=== PATIENT | male | born 1990 | race Caucasian/White ===

== ENCOUNTER 2017-11-09 15:09 | Emergency (ER) | payer BC ==
[2017-11-09 15:16] VITALS: BP 121/86
[2017-11-09] MEDS ORDERED: Lidocaine 1% with EPINEPHrine 1:100,000 20 ML MDV INJECT ONE (15:27)
[2017-11-09] MEDS ORDERED: Bupivacaine 0.5% 10 ML SDV INJECT ONE (15:27)
--- NOTE | 2017-11-09 15:33 | EDM.PDOC ---
ED HPI GENERAL MEDICAL PROBLEM - General Chief Complaint: Upper Extremity Injury/Pain Stated Complaint: R THUMB LAC Time Seen by Provider: 11/09/17 15:22 Source of Information: Reports: Patient, Family (), RN Notes Reviewed History Limitations: Reports: No Limitations - History of Present Illness INITIAL COMMENTS - FREE TEXT/NARRATIVE: The patient states that he was cutting a bolt with a grinder set up operator around 11:30 this morning, when the grinder set up operator slipped, cutting the patient's right thumb. The patient is otherwise uninjured. The patient states that his last tetanus vaccination was 3-4 years ago. The patient does not have a PCP. Right 1-Thumb Pain Score (Numeric/FACES): 1 - Related Data Allergies Allergy/AdvReac Type Severity Reaction Status Date / Time No Known Allergies Allergy Verified 08/21/15 20:47 Home Meds: Home Meds . [No Known Home Meds] 11/09/17 [History] Past Medical History - Past Health History Medical/Surgical History: Denies Medical/Surgical History - Infectious Disease History Infectious Disease History: Reports: Chicken Pox Social & Family History - Family History Family Medical History: Noncontributory - Tobacco Use Smoking Status *Q: Former Smoker Years of Tobacco use: 3 Packs/Tins Daily: 1.5 Month/Year Tobacco Last Used: Quit 2012 - Caffeine Use Caffeine Use: Reports: Coffee, Soda, Tea - Alcohol Use Alcohol Use History: Yes Alcohol Use Frequency: Socially - Recreational Drug Use Recreational Drug Use: No - Living Situation & Occupation Living situation: Reports: , with Spouse, with Family (2 kids) Occupation: Employed ([employer]) Review of Systems - Review of Systems Review Of Systems: ROS reveals no pertinent complaints other than HPI. ED EXAM, GENERAL - Physical Exam Exam: See Below Exam Limited By: No Limitations General Appearance: Alert, WD/WN, No Apparent Distress Extremities: Other (Approximately 2.5 centimeter jagged laceration across the dorso-radial aspect of the proximal phalanx of the patient's left thumb. No extensor tendon injury. Neurovascular status of the thumb is intact.) ED TRAUMA EXTREMITY PROCEDURES - Laceration/Wound Repair Right Hand Lac/Wound Length In cm: 2.5 Appearance: Subcutaneous, Irregular, Mildly Contaminated Distal NVT: Neuro & Vascular Intact, No Tendon Injury Anesthetic Type: Local Local Anesthesia - Lidocaine (Xylocaine): 1% with EPI (50:50 admixture) Local Anesthesia - Bupivicaine (Marcaine): 0.5% Plain (50:50 admixture) Local Anesthetic Volume: 2cc Skin Prep: Providone-Iodine (Betadine) Exploration/Debridement/Repair: Wound Explored, In a Bloodless Field, Explored to Base, No Foreign Material Found, Wound Margins Revised Closed With: Sutures Suture Size: 3-0 # of Sutures: 5 Suture Type: Nylon (Ethilon), Interrupted, Simple Drain Placement: No Sterile Dressing Applied: Nurse Tetanus Status Addressed: Yes Complications: No Course - Vital Signs Last Recorded V/S: Last Vital Signs Temp 36.8 C 11/09/17 15:14 Pulse 99 11/09/17 15:14 Resp 16 11/09/17 15:14 BP 121/86 11/09/17 15:14 Pulse Ox 96 11/09/17 15:14 - Orders/Labs/Meds Meds: Medications Discontinued Medications Generic Name Dose Route Start Last Admin Trade Name Alan PRN Reason Stop Dose Admin Bupivacaine HCl 10 ml 11/09/17 15:27 11/09/17 15:36 Sensorcaine-Mpf 0.5% INJECT 11/09/17 15:28 10 ml ONETIME ONE Administration Lidocaine/Epinephrine 20 ml 11/09/17 15:27 11/09/17 15:36 Xylocaine 1% With Epinephrine 1:100,000 INJECT 11/09/17 15:28 20 ml ONETIME ONE Administration - Re-Assessments/Exams Free Text/Narrative Re-Assessment/Exam: 11/09/17 15:57 Following adequate anesthesia using a 50:50 admixture of lidocaine 1% with epinephrine and bupivacaine 0.5% without epinephrine, the patient's wound was approximated with 5 simple appropriate sutures, using 3-0 Ethilon. The patient tolerated the procedure well. The wound was then dressed with a sterile bandage per Mili OTERO. Departure - Departure Time of Disposition: 15:58 Disposition: Home, Self-Care 01 Condition: Good Clinical Impression: Laceration of right thumb - Discharge Information *PRESCRIPTION DRUG MONITORING PROGRAM REVIEWED*: Not Applicable *COPY OF PRESCRIPTION DRUG MONITORING REPORT IN PATIENT DAPHNE: Not Applicable Instructions: Laceration Care, Adult, [id number] Referrals: Adriano Paula PA-C [Physician Cnc Service Engineer] - Forms: ED Department Discharge Additional Instructions: You were seen in the emergency room after accidentally cutting your right thumb with a grinder set up operator. Your wound was closed with 5 sutures. Keep the wound clean with ordinary soap and water. Apply a clean bandage, daily. Take [id number] Tylenol or ibuprofen as needed for discomfort. Because of the severity of the wound, it may take longer to heal than normal. We recommend that you have it evaluated by Adriano Paula on or about , 12/2017. If you keep the wound clean, it should not get infected, however, if there are any concerns of an infection, such as more pain than you would expect, significant redness, or any sort of drainage, please either see Adriano Paula or return to the ER for reevaluation.
== END 2017-11-09 16:05 | disposition home or self-care (01) ==
LOC: JD.ED 15:09
DX: S61.011A Laceration without foreign body of right thumb without damage to nail, initial encounter (principal); Z87.891 Personal history of nicotine dependence; W31.89XA Contact with other specified machinery, initial encounter
CPT/HCPCS: 12001; 99283; J3490

== ENCOUNTER 2018-10-29 21:49 | Emergency (ER) | payer BC ==
[2018-10-29 21:59] VITALS: BP 160/100; PULSE 76
--- NOTE | 2018-10-29 23:01 | EDM.PDOC ---
ED HPI GENERAL MEDICAL PROBLEM - General Chief Complaint: General Stated Complaint: front left tooth broken Time Seen by Provider: 10/29/18 22:46 Source of Information: Reports: Patient, RN Notes Reviewed History Limitations: Reports: No Limitations - History of Present Illness INITIAL COMMENTS - FREE TEXT/NARRATIVE: Patient is a 28-year-old male who presents to the ED for the evaluation of dental pain. Patient notes that he has pain to his left front upper tooth. He states that this pain has been going on for about 3 days, but has been worsening every day. He notes that last year while at work he ended up fracturing this tooth, and sought dental care at this time for which they put a dental resin until he could afford further dental work. He states now that the pain is worsening. He denies any fever, any sort of nausea, difficulty swallowing or chewing, and no facial swelling. He did try some Orajel for pain relief prior to arrival, but this did not provide much relief. Treatments EXTERNAL RELATIONS MANAGER: Reports: Acetaminophen Other Treatments EXTERNAL RELATIONS MANAGER: orajel Tooth/Teeth Pain Score (Numeric/FACES): 10 - Related Data Allergies Allergy/AdvReac Type Severity Reaction Status Date / Time No Known Allergies Allergy Verified 08/21/15 20:47 Home Meds: Home Meds . [No Known Home Meds] 11/09/17 [History] Past Medical History - Past Health History Medical/Surgical History: Denies Medical/Surgical History Respiratory History: Reports: Other (See Below) Other Respiratory History: bilateral pneumonia - Infectious Disease History Infectious Disease History: Reports: Chicken Pox Social & Family History - Family History Family Medical History: Noncontributory - Caffeine Use Caffeine Use: Reports: Coffee, Soda, Tea - Recreational Drug Use Recreational Drug Use: No - Living Situation & Occupation Living situation: Reports: , with Spouse, with Family (2 kids) Occupation: Employed ([employer]) ED ROS GENERAL - Review of Systems Review Of Systems: See Below Constitutional: Denies: Fever, Chills HEENT: Reports: Dental Pain Respiratory: Reports: No Symptoms Cardiovascular: Reports: No Symptoms Endocrine: Reports: No Symptoms GI/Abdominal: Reports: No Symptoms : Reports: No Symptoms Musculoskeletal: Reports: No Symptoms Skin: Reports: No Symptoms Neurological: Reports: No Symptoms Psychiatric: Reports: No Symptoms Hematologic/Lymphatic: Reports: No Symptoms Immunologic: Reports: No Symptoms ED EXAM, GENERAL - Physical Exam Exam: See Below Exam Limited By: No Limitations General Appearance: Alert, WD/WN, No Apparent Distress Eye Exam: Bilateral Eye: EOMI, Normal Inspection, PERRL Throat/Mouth: Normal Inspection, Normal Lips, Normal Teeth, Normal Gums, Normal Oropharynx, Normal Voice, No Airway Compromise, Other (on the inner portion of the left upper front tooth, there is a white film noted at the gumline, this is painful to palpation.) Head: Atraumatic, Normocephalic Neck: Normal Inspection, Supple, Non-Tender, Full Range of Motion Respiratory/Chest: No Respiratory Distress, Lungs Clear, Normal Breath Sounds, No Accessory Muscle Use, Chest Non-Tender Cardiovascular: Normal Peripheral Pulses, Regular Rate, Rhythm, No Murmur Extremities: Normal Inspection, Normal Capillary Refill Neurological: Alert, Oriented, Normal Cognition, No Motor/Sensory Deficits Psychiatric: Normal Affect, Normal Mood Skin Exam: Warm, Dry, Intact, Normal Color, No Rash Course - Vital Signs Last Recorded V/S: Last Vital Signs Temp 97.6 F 10/29/18 21:56 Pulse 76 10/29/18 21:56 Resp 16 10/29/18 21:56 BP 160/100 H 10/29/18 21:56 Pulse Ox 100 10/29/18 21:56 - Re-Assessments/Exams Free Text/Narrative Re-Assessment/Exam: 10/29/18 23:04 Patient presents to the ED for the evaluation of dental pain. I will provide the patient with a prescription for antibiotics as I believe there is a dental infection present, and a few tablets of pain medication in the event that Aleve does not provide dental pain relief by itself. Departure - Departure Time of Disposition: 22:59 Disposition: Home, Self-Care 01 Condition: Fair Clinical Impression: Pain, dental, Dental abscess - Discharge Information *PRESCRIPTION DRUG MONITORING PROGRAM REVIEWED*: No *COPY OF PRESCRIPTION DRUG MONITORING REPORT IN PATIENT DAPHNE: No Instructions: Dental Abscess, [id number] Referrals: PCP,None [Primary Care Provider] - Forms: ED Department Discharge Additional Instructions: You have been evaluated in the ED for your dental pain. You have been provided with a script for Augmentin. Please take this medication as directed. (1 tab twice daily for 10 days or until gone). This antibiotic can cause diarrhea, recommend that you start a probiotic while taking this medication. Aleve provides good pain relief for dental pain. Please take 1-2 tabs twice daily as needed for pain. You have been given a prescription for pain medications that you may take in case Aleve does not provide enough pain relief by itself. You may use hot pack/ ice packs to the affected area as tolerated in 15-20 minute intervals. You will ultimately need to find a dentist to provide definitive management of your dental pain. Please return to the ED if your symptoms change or worsen.
== END 2018-10-29 23:07 | disposition home or self-care (01) ==
LOC: JD.ED 21:49
DX: K04.7 Periapical abscess without sinus (principal)
CPT/HCPCS: 99282

== ENCOUNTER 2019-05-30 13:46 | Emergency (ER) | payer BC ==
[2019-05-30 14:03] VITALS: BP 153/112; PULSE 104
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
--- NOTE | 2019-05-30 14:50 | CR ---
Right knee: 4 views of the right knee were obtained. Comparison: No prior knee exam. Medial and lateral joint compartments are maintained in height. No joint effusion is identified. No fracture or other abnormality is appreciated. Impression: 1. No abnormality is appreciated on right knee exam. Diagnostic code #1 This report was dictated in MDT
== END 2019-05-30 15:35 | disposition home or self-care (01) ==
LOC: SUPCPDRO 13:46 → JD.ED 13:46
DX: S89.91XA Unspecified injury of right lower leg, initial encounter (principal); W22.8XXA Striking against or struck by other objects, initial encounter
CPT/HCPCS: 73564-26-RT; 73564-RT; 99283; 99283-25

== ENCOUNTER 2023-10-08 21:43 | Emergency (ER) | payer SELFPAY ==
[2023-10-08] MEDS ORDERED: Sodium Chloride 0.9% 10 ML Syringe FLUSH PRN (22:18)
[2023-10-08 22:19] VITALS: BP 148/126; PULSE 88
[2023-10-08 22:28] LABS: BASOPHILS ABSOLUTE AUTO 0.1 K/mm3 (0.0-0.2); BASOPHILS PERCENT AUTO 0.7 % (0.0-1.0); EOSINOPHILS ABSOLUTE AUTO 0.4 K/mm3 (0.0-0.4); EOSINOPHILS PERCENT AUTO 3.7 % (0.0-6.0); HEMATOCRIT 44.3 % (42.0-52.0); HEMOGLOBIN 15.5 gm/dl (14.0-18.0); IMMATURE GRAN ABSOLUTE AUTO 0.03 K/mm3 (0.00-0.05); IMMATURE GRAN PERCENT AUTO 0.3 % (0.0-0.4); LYMPHOCYTES ABSOLUTE AUTO 1.4 K/mm3 (1.0-4.8); LYMPHOCYTES PERCENT AUTO 14.3 % (24.0-44.0); MEAN CORPUSCULAR HEMOGLOBIN 31.3 pg (28.0-32.0); MEAN CORPUSCULAR VOLUME 89.3 fl (83.0-99.0); MEAN PLATELET VOLUME 10.4 fl (9.4-12.4); MONOCYTES ABSOLUTE AUTO 0.7 K/mm3 (0.0-0.8); MONOCYTES PERCENT AUTO 6.8 % (0.0-8.0); NEUTROPHILS ABSOLUTE AUTO 7.3 K/mm3 (1.8-7.7); NEUTROPHILS PERCENT AUTO 74.2 % (41.0-71.0); PLATELET COUNT,PLT 178 K/mm3 (150-400); RED BLOOD CELL COUNT 4.96 M/mm3 (4.52-5.90); WHITE BLOOD CELL COUNT,WBC 9.84 K/mm3 (3.9-11.3)
[2023-10-08 22:41] LABS: PROTHROMBIN TIME 10.6 SECONDS (9.7-12.0)
[2023-10-08 22:42] LABS: A/G RATIO 1.2 (1-2); ALBUMIN 3.8 g/dl (3.4-5.0); ANION GAP 13.8 (5-15); BILIRUBIN TOTAL 0.4 mg/dL (0.2-1.0); BUN/CREATININE RATIO 10.9 (14-18); CALCIUM 8.9 mg/dL (8.5-10.1); CREATININE 1.1 mg/dL (0.7-1.3); EST CRCL DRUG DOSING (CG) 99.55 mL/min; MAGNESIUM 1.8 mg/dL (1.8-2.4); POTASSIUM,K 3.8 mEq/L (3.5-5.1); PTT,PARTIAL THROMBOPLSTIN TIME 24.7 SECONDS (21.7-31.4)
[2023-10-08] MEDS: Diphtheria,Pertussis(Acell),Tetanus Vaccine 0.5 ML Syringe IM ONE (22:57)
[2023-10-08] MEDS: Sodium Chloride 0.9% 1,000 ML IV ONE (22:58)
[2023-10-08 23:29] LABS: APPEARANCE,URINE CLEAR (Clear); BILIRUBIN,URINE NEGATIVE (Negative); COLOR,URINE YELLOW (Yellow); GLUCOSE,URINE NEGATIVE (Negative); KETONES,URINE TRACE (Negative); LEUKOCYTE ESTERASE,URINE NEGATIVE (Negative); NITRITE,URINE NEGATIVE (Negative); OCCULT BLOOD,URINE NEGATIVE (Negative); PROTEIN,URINE NEGATIVE (Negative); UROBILINOGEN,URINE 0.2 (0.2-1.0)
[2023-10-09] MEDS ORDERED: Iopamidol 612 MG/ML 30 ML SDV IVPUSH ONE (00:38)
[2023-10-09] MEDS: Sodium Chloride 0.9% 10 ML Syringe FLUSH ONE (01:08)
[2023-10-09] MEDS: Iopamidol 612 MG/ML 100 ML Bottle IVPUSH ONE (01:08)
[2023-10-09] MEDS: Lidocaine 1% 10 ML MDV INJECT ONE (02:37)
[2023-10-09] MEDS: Bupivacaine 0.5% 10 ML SDV INJECT ONE (02:37)
== END 2023-10-09 04:19 | disposition home or self-care (01) ==
LOC: JD.ED 21:43
DX: S92.332A Displaced fracture of third metatarsal bone, left foot, initial encounter for closed fracture (principal); S92.352A Displaced fracture of fifth metatarsal bone, left foot, initial encounter for closed fracture; Z23 Encounter for immunization; Z87.891 Personal history of nicotine dependence; Z88.5 Allergy status to narcotic agent; Z88.6 Allergy status to analgesic agent; V86.55XA Driver of 3- or 4- wheeled all-terrain vehicle (ATV) injured in nontraffic accident, initial encounter
CPT/HCPCS: 28475; 36415; 70450; 71045; 71260; 72125; 73000; 73030; 73060; 73610; 73630; 74177; 80053; 81003; 82550; 83735; 85025; 85610; 85730; 90471; 90715; 96360; 99284; J0665; J3490; J7030; Q9967

== ENCOUNTER 2023-10-21 08:33 | Day surgery (SDC) | payer OTHER ==
[~2023-10-21 08:33] MED LIST: Ondansetron 4 MG/2 ML SDV IVPUSH PRN; Sodium Chloride 0.9% 10 ML Syringe FLUSH PRN
[2023-10-21] MEDS ORDERED: Sodium Chloride 0.9% 10 ML Syringe FLUSH SCH (09:00)
[2023-10-21] MEDS: Lactated Ringers 1,000 ML IV SCH (09:28)
[2023-10-21] MEDS ORDERED: Ropivacaine 0.5% 5 MG/ML 30 ML SDV ONE (09:49)
[2023-10-21] MEDS ORDERED: fentaNYL 100 MCG/2 ML SDV ONE ×2 (09:49→10:51)
[2023-10-21] MEDS ORDERED: Midazolam 1 MG/ML 2 ML SDV ONE (09:49)
[2023-10-21] MEDS ORDERED: Propofol 200 MG/20 ML SDV ONE ×2 (10:10→10:54)
[2023-10-21] MEDS ORDERED: Rocuronium 50 MG/5 ML Vial ONE (10:10)
[2023-10-21] MEDS ORDERED: Lidocaine 2% 5 ML SDV ONE (10:10)
[2023-10-21] MEDS ORDERED: ceFAZolin 2 GM Vial ONE (10:21)
[2023-10-21] MEDS ORDERED: Dexamethasone 4 MG/ML 5 ML MDV ONE (10:23)
[2023-10-21] MEDS ORDERED: Ondansetron 4 MG/2 ML SDV ONE (10:23)
[2023-10-21] MEDS ORDERED: Sugammadex Sodium 200 MG/2 ML VIAL IV ONE ×2 (10:24→11:27)
[2023-10-21] MEDS ORDERED: Lactated Ringers 1,000 ML IV ONE (10:30)
[2023-10-21] MEDS ORDERED: HYDROmorphone 0.5 MG/0.5 ML Syringe ONE (10:58)
[2023-10-21] MEDS ORDERED: Ketorolac 30 MG/ML SDV ONE (11:28)
[2023-10-21] MEDS: HYDROmorphone 0.5 MG/0.5 ML Syringe IVPUSH PRN (11:53)
[2023-10-21] MEDS: fentaNYL 100 MCG/2 ML SDV IVPUSH PRN (12:00)
[2023-10-21] MEDS: oxyCODONE 5 MG Tab PO SCH (12:49)
[2023-10-21 13:56] VITALS: BP 142/101; PULSE 98
== END 2023-10-21 13:45 | disposition home or self-care (01) ==
LOC: JD.SDS 08:33
PROVIDERS: ATTEND Orthopaedic Surgery
DX: S42.022A Displaced fracture of shaft of left clavicle, initial encounter for closed fracture (principal); S92.332A Displaced fracture of third metatarsal bone, left foot, initial encounter for closed fracture; S92.342A Displaced fracture of fourth metatarsal bone, left foot, initial encounter for closed fracture; S92.352A Displaced fracture of fifth metatarsal bone, left foot, initial encounter for closed fracture; Z88.8 Allergy status to other drugs, medicaments and biological substances; Z79.899 Other long term (current) drug therapy; V86.55XA Driver of 3- or 4- wheeled all-terrain vehicle (ATV) injured in nontraffic accident, initial encounter
CPT/HCPCS: 76000; 76000-26; A9270-GY; C1713; C1776; J0690; J1100; J1170; J1885; J2250; J2405; J2704; J2795; J3010; J3490; J7120